=== PATIENT | female | born 2005 | race Caucasian/White ===

== ENCOUNTER 2024-03-19 16:39 | Emergency (ER) | payer BC, SELFPAY ==
--- NOTE | ~2024-03-19 | US_ITS ---
EXAMINATION: US ABDOMEN LIMITED CLINICAL INFORMATION: Right lower quadrant pain and swelling with questionable abdominal wall hematoma or seroma. COMPARISON: None available. TECHNIQUE: Real-time imaging of the right upper quadrant abdominal viscera. FINDINGS: Small amount of fluid is seen in the right lower quadrant abdominal wall measuring 1.6 x 0.5 x 1.6 cm. No abnormality is seen on the left which was scanned for comparison. US/US abdomen limited IMPRESSION: Small amount of fluid in the right lower quadrant abdominal wall. Electronically signed by: José Miguel Nielson MD 03/19/2024 06:37 PM EDT
[2024-03-19 17:04] VITALS: BP 155/102; PULSE 98; RESP 16; TEMP 36.7; O2SAT 100; BMI 26.8
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
[2024-03-19 19:08] VITALS: BP 155/102; PULSE 98; RESP 16; TEMP 36.7; O2SAT 100
== END 2024-03-19 19:08 | disposition home or self-care (01) ==
PROVIDERS: Emergency Provider Emergency Medicine Emergency Medical Services
DX: S30.1XXA Contusion of abdominal wall, initial encounter (principal); X58.XXXA Exposure to other specified factors, initial encounter; Y93.89 Activity, other specified; Y92.89 Other specified places as the place of occurrence of the external cause; Y99.8 Other external cause status
CPT/HCPCS: 76705; 99283; 99284

== ENCOUNTER 2024-03-26 14:26 | Outpatient (AMB) | payer BC, SELFPAY ==
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
[2024-03-26 14:36] VITALS: BP 150/83; PULSE 88; BMI 26.8
== END 2024-03-26 14:41 | disposition home or self-care (01) ==
LOC: HO.HGS 14:27
PROVIDERS: PCP Internal Medicine; Visit Provider Surgery
DX: T79.2XXA Traumatic secondary and recurrent hemorrhage and seroma, initial encounter (principal)
CPT/HCPCS: 99203

== ENCOUNTER → 2024-03-26 14:26 | Outpatient (BNVA) | payer BC, SELFPAY | PROVIDERS: PCP Internal Medicine; Visit Provider Surgery ==